=== PATIENT | female | born 1980 | race African-American/Black ===

== ENCOUNTER → 2019-08-18 | Outpatient (CLI) | payer MEDICAID ==
--- NOTE | 2019-08-21 11:36 | Diagnostic Imaging Report ---
INDICATION: Routine screening. No prior mammograms are available for comparison. 2-D and 3-D bilateral screening mammography was performed with CAD. Scattered fibroglandular densities are identified bilaterally. There are intraparenchymal lymph nodes in both breasts. No spiculated mass or malignant-appearing microcalcifications are seen. Axillae are unremarkable. IMPRESSION: BI-RADS Category 2 No mammographic features suspicious for malignancy are identified. ACR BI-RADS Category 2: Benign findings. Result letter will be mailed to the patient. Note: At least 10% of breast cancer is not imaged by mammography. Dictated by: Dictated on workstation # [id number]
== END ==
LOC: RAD 15:53
PROVIDERS: ATTEND Nurse Practitioner Family
DX: Z12.31 Encounter for screening mammogram for malignant neoplasm of breast (principal)
CPT/HCPCS: 77067

== ENCOUNTER → 2020-11-25 | Outpatient (CLI) | payer MEDICAID ==
--- NOTE | 2020-11-25 15:42 | Diagnostic Imaging Report ---
INDICATION: Fall with left ankle pain and swelling. TIME OF EXAM: 12:39 PM 3 views of the left ankle were obtained. Alignment is normal. Ankle mortise is well maintained. Talar dome is smooth. No fracture or dislocation is identified. IMPRESSION: No acute bony abnormality is detected. Dictated by: Dictated on workstation # [id number]
== END ==
LOC: RAD FS 12:36
PROVIDERS: ATTEND Nurse Practitioner Family
DX: R60.0 Localized edema (principal); W19.XXXA Unspecified fall, initial encounter
CPT/HCPCS: 73610

== ENCOUNTER → 2020-11-30 | Outpatient (CLI) | payer MEDICAID ==
--- NOTE | 2020-11-30 12:30 | Diagnostic Imaging Report ---
INDICATION: Left lower leg pain and swelling after fall. COMPARISON: None. DISCUSSION: Two views of the left tibia and fibula were obtained. No acute fracture, dislocation, or other osseous abnormality identified. No significant degenerative disease. Alignment is anatomic. Soft tissues are unremarkable. IMPRESSION: 1. Negative left tibia and fibula. Dictated by: Dictated on workstation # [id number]
== END ==
LOC: RAD FS 11:11
PROVIDERS: ATTEND Nurse Practitioner Family
DX: M79.662 Pain in left lower leg (principal); R60.0 Localized edema; M79.89 Other specified soft tissue disorders; W19.XXXA Unspecified fall, initial encounter
CPT/HCPCS: 73590